=== PATIENT | female | born 1975 | race Two or more races ===

== ENCOUNTER 2024-08-15 21:46 | Emergency (ER) | payer MEDICAID, SELFPAY ==
[2024-08-15 21:42] VITALS: BP 124/83; PULSE 104; TEMP 37.2; O2SAT 98; BMI 18.1
[2024-08-15 21:46] VITALS: PULSE 93
--- NOTE | 2024-08-15 21:54 | ECG_ITS ---
[facility] Test Date: 2024-08-15 Pat Name: SHAHLA SCHWARTZ Department: Room: - Gender: Female Band Booker: : 1975 Requested By: Brent Singh Order Number: [id number] Reading MD: JUHI FAUST M.D. Measurements Intervals [place] Rate: 93 P: 77 DE: 128 QRS: 82 QRSD: 78 T: 81 QT: 352 QTc: 402 Interpretive Statements 1100 Sinus rhythm 1102 Sinus arrhythmia 6220 Possible left atrial enlargement 9130 borderline ECG No previous ECG available for comparison Electronically Signed On 08-16-2024 13:59:40 EDT by JUHI FAUST M.D.
--- NOTE | 2024-08-15 22:10 | ED_ITS ---
HPI - Psych General Chief Complaint: Psychiatric Symptoms Stated Complaint: SUICIDAL Time Seen by Provider: 08/15/24 21:47 Source: Reports patient Mode of arrival: ambulance Limitations: Reports no limitations History of Present Illness HPI Narrative: cc - suicidal Pt sent from [facility] to be evaluated and admitted to psychiatric facility. The patient states that she is acutely suicidal, she had thoughts of wrapping a sheet around her neck or finding another way to kill herself today. The patient previously abused crack cocaine and had also been abusing gabapentin, both of which she obtained through family members and friends. She has been almost 2 weeks without abusing any of these drugs as she has been hospitalized at [facility] and then subsequently at [facility], where she went earlier this past week because of suicidal thoughts after being off of her psychiatric medication for several weeks. She told me that while at [facility] they restarted her psychiatric medications and she was discharged back to [facility] 2 days ago. She said that she feels worse than when she went into [facility]hab, increased depression and anxiety, increased suicidal thoughts. She is not having any withdrawal symptoms. She has history of seizure disorder with the last seizure 2020 and she currently takes Keppra and Lamictal. Related Data Home Medications ?Medication ?Instructions ?Recorded ?Confirmed acetaminophen 500 mg PO BID PRN pain/infla mmation 08/15/24 08/15/24 hydroxyzine pamoate 25 mg capsule 25 mg PO Q6H PRN MATHEW 08/15/24 08/15/24 ibuprofen 800 mg tablet 800 mg PO Q12H PRN 08/15/24 08/15/24 pain/inflammation/swelling lamotrigine 200 mg tablet 100 mg PO BID 08/15/2408/15 (Lamictal) levetiracetam 500 mg tablet 500 mg PO BID 08/15/24 melatonin 10 mg capsule 10 mg PO HS PRN insomnia 08/15/24 olanzapine 5 mg tablet 5 mg PO BID PRN agitation 08/15/24 olanzapine 5 mg tablet 10 mg PO DAILY agitation 08/15/24 omeprazole 20 mg capsule,delayed 20 mg PO DAILY 08/15/24 release trazodone 50 mg tablet 50 mg PO DAILY 08/15/2407/20 Allergies Allergy/AdvReac Type Severity Reaction Status Date / Time cefaclor (From Ceclor) Allergy Mild Rash Verified 08/15/24 21:53 ciprofloxacin Allergy Mild Unknown Verified 08/15/24 21:53 sulfamethoxazole (From Allergy Mild Hives Verified 08/15/24 21:53 Bactrim) trimethoprim (From Bactrim) Allergy Mild Hives Verified 08/15/24 21:53 PFSH PFSH Social History Little interest or pleasure in doing things: not at all Feeling down, depressed, or hopeless: nearly every day Exam Narrative Exam Narrative: Nurses notes and vital signs reviewed and patient is not hypoxic. afebrile General: Well-appearing. Anxious. Skin: Warm, dry, no pallor noted. No rash. Head: Normocephalic, atraumatic. Neck: Supple, non-tender. Eye: Pupils are equal, round and EOMI. No scleral icterus. Ears, Nose, Mouth, and Throat: Oral mucosa is moist Cardiovascular: Regular Rate and Rhythm without murmur, gallop or rub. Respiratory: No accessory muscle use or respiratory distress. Lungs are clear to auscultation, no wheezing, rales or rhonchi Back: No midline thoracic or lumbar vertebral tenderness. No CVA tenderness Musculoskeletal: normal ROM, no calf or popliteal tenderness, no lower extremity edema/swelling GI: Abdomen is soft, non-distended. Normal bowel sounds. No tenderness to palpation. No rebound, guarding, or rigidity noted. Neurological: A&O x4. No cranial nerve dysfunction observed. No truncal ataxia. Moves all extremities. Sensation intact. Psychiatric: Cooperative and interactive. Normal mood and affect. Constitutional Vital Signs, click to edit/add: Last Vital Signs Temp 98.9 F 08/15/24 21:42 Pulse 94 H 08/16/24 00:27 Resp 16 08/16/24 00:27 BP 120/74 08/16/24 00:27 Pulse Ox 99 08/16/24 00:27 O2 Del Method Room Air 08/16/24 00:27 Course Vital Signs Vital signs: Vital Signs Temperature 98.9 F 08/15/24 21:42 Pulse Rate 104 H 08/15/24 21:42 Respiratory Rate 16 08/15/24 21:42 Blood Pressure 124/83 08/15/24 21:42 Pulse Oximetry 98 08/15/24 21:42 Oxygen Delivery Method Room Air 08/15/24 21:42 Temperature 98.9 F 08/15/24 21:42 Pulse Rate 94 H 08/16/24 00:27 Respiratory Rate 16 08/16/24 00:27 Blood Pressure 120/74 08/16/24 00:27 Pulse Oximetry 99 08/16/24 00:27 Oxygen Delivery Method Room Air 08/16/24 00:27 MDM - Psych MDM Narrative Medical decision making narrative: Patient is acutely suicidal continues to have thoughts of hurting herself. She told me that she needs hospitalization in the psychiatric facility. Patient with history of PTSD, depression, anxiety, history of substance abuse but has not used in over 2 weeks. Previously used crack cocaine and also was abusing gabapentin. She now presents acutely suicidal -suicide precautions initiated and a sitter was arranged for one-on-one observation. EKG obtained. Blood drawn and sent for evaluation. Urine also ordered to be obtained and sent for testing. Emergency department nurse called to [facility] in order to arrange Psychiatric Admission to their facility. Blood and urine tests were unremarkable. She did test positive for cannabinoids on her tox screen. UA appears contaminated with increased squamous epithelial cells. She has medically cleared for psychiatric evaluation and admission. She is stable for transfer to any accepting facility. @2311 - we are still awaiting acceptance by [facility] psych. @2336 - Tressa from spoke with ED nurse and patient - she is working on transfer/acceptance to [address] while also investigating rehab at [facility] rather than [facility] due to patient finding it ineffective . @0150 - Pt accepted at [facility] and arrangements made for transportation. Medical Records Attestation: I reviewed the patient's medical records. Medical records narrative: I reviewed the patient's intake form from [facility]. Lab Data Attestation: I reviewed the patient's lab results. Labs: Lab Results 08/15/24 08/15/24 Range/Units 21:56 22:03 WBC 9.3 (4.0-11.0) 10^3/uL RBC 4.56 (4.20-5.40) 10^6/uL Hgb 14.4 (12.0-16.0) g/dL Hct 43.6 (36.0-48.0) % MCV 95.6 (81.0-99.0) fL MCH 31.6 (26.7-34.0) pg MCHC 33.0 (29.9-35.2) g/dL RDW 12.2 (11.0-15.0) % Plt Count 299 (150-450) 10^3/uL MPV 9.8 (9.5-13.5) fL Neut % (Auto) 54.4 (43.0-75.0) % Lymph % (Auto) 36.4 (20.5-60.0) % [place] % (Auto) 6.7 (1.7-12.0) % Eos % (Auto) 2.0 (0.9-7.0) % Baso % (Auto) 0.4 (0.2-2.0) % Neut # (Auto) 5.1 (1.4-6.5) 10^3/uL Lymph # (Auto) 3.4 (1.2-3.8) 10^3/uL [place] # (Auto) 0.6 (0.3-0.8) 10^3/uL Eos # (Auto) 0.2 (0.0-0.7) 10^3/uL Baso # (Auto) 0.0 (0.0-0.1) 10^3/uL Abs Immat Gran (auto) 0.01 (0.00-0.03) 10^3/uL Imm/Tot Granulo (auto) 0.1 (0.0-0.5) % Sodium 140 (136-145) mmol/L Potassium 4.0 (3.5-5.1) mmol/L Chloride 99 (98-107) mmol/L Carbon Dioxide 31.0 (21.0-32.0) mmol/L Anion Gap 14.0 BUN 15.0 (7.0-18.0) mg/dL Creatinine 0.93 (0.55-1.02) mg/dL Est GFR ( Amer) >60 (>=60 mL/min/1.73m^2) Est GFR (Non-Af Amer) >60 (>=60 mL/min/1.73m^2) BUN/Creatinine Ratio 16.1 Glucose 96 (74-106) mg/dL Calcium 9.6 (8.5-10.1) mg/dL Total Bilirubin 0.3 (0.2-1.0) mg/dL AST 21 (15-37) U/L ALT 31 (14-59) U/L Alkaline Phosphatase 86 (46-116) U/L Total Protein 8.0 (6.4-8.2) g/dL Albumin 4.3 (3.4-5.0) g/dL Globulin 3.7 g/dL Albumin/Globulin Ratio 1.2 Serum HCG, Qual Positive A (NEGATIVE) HCG, Quant 9 mIU/mL Urine Color Lt. yellow (YELLOW) Urine Clarity Clear (CLEAR) Urine pH 7.0 (5.0-9.0) Ur Specific [place] 1.010 (1.005-1.025) Urine Protein Negative (NEG/TRACE) mg/dL Urine Glucose (UA) Negative (NEGATIVE) mg/dL Urine Ketones Negative (NEGATIVE) mg/dL Urine Occult Blood Negative (NEGATIVE) Urine Nitrite Negative (NEGATIVE) Urine Bilirubin Negative (NEGATIVE) Urine Urobilinogen 0.2 (0.2-1.0) EU/dL Ur Leukocyte Esterase Moderate A (NEGATIVE) Urine RBC None seen (0-2) #/HPF Urine WBC 20-50 A (NONE SEEN) #/HPF Ur Squamous Epith Cells Moderate A (NONE/RARE) #/LPF Urine Crystals None seen (None Seen) #/HPF Urine Bacteria Small A (NONE SEEN) #/HPF Urine Casts None seen (NONE SEEN) #/LPF Urine Mucus Small A (NONE SEEN) Ur Culture Indicated? Yes-[facility] [place] Salicylates 3.9 (<=19.9) mg/dL Urine Opiates Screen Negative (NEGATIVE) Ur Buprenorphine Scrn Negative (NEGATIVE) Ur Oxycodone Screen Negative (NEGATIVE) Urine Methadone Screen Negative (NEGATIVE) Acetaminophen <2.0 L (10.0-30.0) ug/mL Ur Barbiturates Screen Negative (NEGATIVE) U Tricyclic Antidepress Negative (NEGATIVE) Ur Phencyclidine Scrn Negative (NEGATIVE) Ur Amphetamines Screen Negative (NEGATIVE) U Methamphetamines Scrn Negative (NEGATIVE) U Benzodiazepines Scrn Negative (NEGATIVE) Urine Cocaine Screen Negative (NEGATIVE) U Cannabinoids Screen Positive A (NEGATIVE) Ethanol Quant <3 mg/dL ECG Data Attestation: I personally reviewed and interpreted this ECG as follows: Interpretation: EKG interpretation: Emergency Department physician interpretation. Normal sinus rhythm at 93bpm. Normal axis, normal intervals and no ST segment elevation or depression. Discharge Plan Discharge Chief Complaint: Psychiatric Symptoms Clinical Impression: Suicidal ideation, Depression, Acute anxiety Patient Disposition: Xfer Acute Care Hospital Discharge location: [place]
[2024-08-15 22:15] LABS: Basophils Percent Auto 0.4 % (0.2-2.0); Eosinophils Absolute Auto 0.2 10^3/uL (0.0-0.7); Hematocrit 43.6 % (36.0-48.0); Hemoglobin 14.4 g/dL (12.0-16.0); Immature Granulocytes Abs Auto 0.01 10^3/uL (0.00-0.03); Immature Granulocytes Pct Auto 0.1 % (0.0-0.5); Lymphocytes Absolute Auto 3.4 10^3/uL (1.2-3.8); Lymphocytes Percent Auto 36.4 % (20.5-60.0); Mean Corpuscular Hemoglobin 31.6 pg (26.7-34.0); Mean Corpuscular Volume 95.6 fL (81.0-99.0); Mean Platelet Volume 9.8 fL (9.5-13.5); Monocytes Absolute Auto 0.6 10^3/uL (0.3-0.8); Monocytes Percent Auto 6.7 % (1.7-12.0); Neutrophils Absolute Auto 5.1 10^3/uL (1.4-6.5); Neutrophils Percent Auto 54.4 % (43.0-75.0); Platelet Count 299 10^3/uL (150-450); Red Blood Count 4.56 10^6/uL (4.20-5.40); Red Cell Distribution Width 12.2 % (11.0-15.0); White Blood Count 9.3 10^3/uL (4.0-11.0)
[2024-08-15 22:19] LABS: Bilirubin Urine NEGATIVE (NEGATIVE); Blood Urine NEGATIVE (NEGATIVE); Clarity Urine CLEAR (CLEAR); Color Urine LT. YELLOW (YELLOW); Glucose Urine UA NEGATIVE (NEGATIVE); Ketones Urine NEGATIVE (NEGATIVE); Leukocyte Esterase Urine MODERATE (NEGATIVE); Nitrite Urine NEGATIVE (NEGATIVE); Protein Urine NEGATIVE (NEG/TRACE); Urobilinogen Urine 0.2 EU/dL (0.2-1.0)
[2024-08-15 22:25] LABS: Bacteria Urine SMALL #/HPF (NONE SEEN); Cast Seen? NONE SEEN #/LPF (NONE SEEN); Crystals Seen? None Seen #/HPF (None Seen); Mucus Urine SMALL (NONE SEEN); RBC Urine NONE SEEN #/HPF (0-2); Squamous Epithelial Cell Urine MODERATE #/LPF (NONE/RARE); Urine Culture Indicated YES-FRMC; WBC Urine 20-50 #/HPF (NONE SEEN)
[2024-08-15 22:26] LABS: Internal Control Within Normal Limits
[2024-08-15 22:32] LABS: Alanine Aminotransferase 31 U/L (14-59); Albumin Globulin Ratio 1.2; Albumin Level 4.3 g/dL (3.4-5.0); Alkaline Phosphatase 86 U/L (46-116); Aspartate Amino Transferase 21 U/L (15-37); BUN Creatinine Ratio 16.1; Bilirubin Total 0.3 mg/dL (0.2-1.0); Calcium 9.6 mg/dL (8.5-10.1); Chloride 99 mmol/L (98-107); Estimated GFR (African America >60 (>=60 mL/min/1.73m^2); Estimated GFR (Non-African Ame >60 (>=60 mL/min/1.73m^2); Globulin 3.7 g/dL; Glucose 96 mg/dL (74-106); HCG Qualitative POSITIVE (NEGATIVE); Salicylate 3.9 mg/dL (<=19.9); Sodium 140 mmol/L (136-145)
[2024-08-15 22:33] LABS: Amphetamine Screen Urine NEGATIVE (NEGATIVE); Barbiturates Screen Urine NEGATIVE (NEGATIVE); Benzodiazepines Screen Urine NEGATIVE (NEGATIVE); Buprenorphine Screen Urine NEGATIVE (NEGATIVE); Cannabinoid Screen Urine POSITIVE (NEGATIVE); Cocaine Screen Urine NEGATIVE (NEGATIVE); Methadone Screen Urine NEGATIVE (NEGATIVE); Methamphetamines Screen Urine NEGATIVE (NEGATIVE); Opiate Screen Urine NEGATIVE (NEGATIVE); Oxycodone Screen Urine NEGATIVE (NEGATIVE); Phencyclidine Screen Urine NEGATIVE (NEGATIVE); Tricyclic Antidepressant Urine NEGATIVE (NEGATIVE)
[2024-08-15 22:34] LABS: Acetaminophen <2.0 ug/mL (10.0-30.0); Ethanol <3 mg/dL
[2024-08-15 23:55] LABS: HCG Quantitative 9 mIU/mL
[2024-08-16 00:27] VITALS: BP 120/74; PULSE 94; O2SAT 99
== END 2024-08-16 01:58 | disposition short-term general hospital (02) ==
PROVIDERS: Emergency Provider Emergency Medicine
DX: R45.851 Suicidal ideations (principal); F32.A Depression, unspecified; F41.9 Anxiety disorder, unspecified; F14.10 Cocaine abuse, uncomplicated; G40.909 Epilepsy, unspecified, not intractable, without status epilepticus; Z79.899 Other long term (current) drug therapy
CPT/HCPCS: 36415; 80053; 80179; 80307; 80320; 80329; 81001; 84702; 84703; 85025; 87086; 87088; 87186; 93005; 99285

== ENCOUNTER 2024-08-15 21:46 | Emergency (ER) | payer SELFPAY | END 2024-08-15 22:23 | disposition left against medical advice (07) | LOC: ER 21:51 | PROVIDERS: Emergency Provider Emergency Medicine | DX: Z53.21 Procedure and treatment not carried out due to patient leaving prior to being seen by health care provider (principal) ==